=== PATIENT | male | born 1945 | race Caucasian/White ===

== ENCOUNTER → 2023-07-18 10:13 | Outpatient (REF) | payer MEDICARE, OTHER, SELFPAY ==
[2023-07-18 15:49] LABS: ALT (SGPT) 22 U/L (0-50); AST (SGOT) 36 U/L (17-59); Albumin 4.2 g/dl (3.5-5.0); Alkaline Phosphatase 78 U/L (38-126); Blood Urea Nitrogen 27 mg/dl (9-20); Calcium 10.1 mg/dl (8.4-10.2); Carbon Dioxide 24 mmol/L (22-30); Chloride 106 mmol/L (98-107); Glucose 95 mg/dl (70-99); Iron 97 ug/dl (49-181); Potassium 4.6 mmol/L (3.5-5.1); Sodium 137 mmol/L (135-145); Total Bilirubin 0.6 mg/dl (0.2-1.3); eGFR 52.09
[2023-07-18 15:56] LABS: % Basophils 0.9 % (0-2); % Eosinophils 3.6 % (0-6); % Immature Granulocytes 0.9 % (0-0.5); % Lymphocytes 29.4 % (20.5-51.1); % Monocytes 13.6 % (1.7-9.3); % Neutrophils 51.6 % (42.2-75.2); Absolute Basophils 0.1 10^3/uL (0-0.2); Absolute Eosinophils 0.2 10^3/uL (0-0.7); Absolute Immature Granulocytes 0.1 10^3/uL (0-0.05); Absolute Lymphocytes 1.6 10^3/uL (1.2-3.4); Absolute Monocytes 0.7 10^3/uL (0.1-0.6); Absolute Neutrophils 2.7 10^3/uL (1.4-6.5); Hematocrit 39.2 % (39.0-52.0); Hemoglobin 13.5 g/dL (13.0-18.0); Mean Corp Hgb Conc. 34.4 g/dL (33.0-37.0); Mean Corpuscular Hgb 30.1 pg (27.0-31.0); Mean Corpuscular Volume 87.5 fL (80.0-94.0); Mean Platelet Volume 10.5 fL (7.4-10.4); Nucleated Red Blood Cells % 0 % (-); Platelet Count 234 10^3/uL (130-400); Red Blood Cell Count 4.48 10^6/uL (4.70-6.10); Red Cell Dist. Width 12.8 % (11.5-14.5); White Blood Cell Count 5.3 10^3/uL (4.8-10.8)
[2023-07-18 15:58] LABS: Percent Saturation 23 % (20-50); Total Iron Binding Capacity 416 ug/dl (261-462)
[2023-07-18 16:24] LABS: Ferritin 9.4 ng/ml (17.9-464.0)
[2023-07-18 16:30] LABS: D-Dimer 0.45 ug/mlFEU (0.00-0.50)
== END ==
LOC: HWLAB 10:13
PROVIDERS: ATTENDING PHYSICIAN Internal Medicine Hematology & Oncology; FAMILY PHYSICIAN Internal Medicine; REFERRING PHYSICIAN Urology
DX: I80.3 Phlebitis and thrombophlebitis of lower extremities, unspecified (principal); I80.12 Phlebitis and thrombophlebitis of left femoral vein; D50.9 Iron deficiency anemia, unspecified; R97.20 Elevated prostate specific antigen [PSA]
CPT/HCPCS: 36415; 80053; 82728; 83540; 83550; 84153; 85025; 85379

== ENCOUNTER → 2023-10-01 08:29 | Outpatient (REF) | payer MEDICARE, OTHER, SELFPAY ==
[2023-10-01 09:28] LABS: % Basophils 0.8 % (0-2); % Eosinophils 3.7 % (0-6); % Immature Granulocytes 0.2 % (0-0.5); % Lymphocytes 27.5 % (20.5-51.1); % Monocytes 12.4 % (1.7-9.3); % Neutrophils 55.4 % (42.2-75.2); Absolute Eosinophils 0.2 10^3/uL (0-0.7); Absolute Lymphocytes 1.4 10^3/uL (1.2-3.4); Absolute Monocytes 0.6 10^3/uL (0.1-0.6); Absolute Neutrophils 2.9 10^3/uL (1.4-6.5); Hematocrit 42.4 % (39.0-52.0); Hemoglobin 14.8 g/dL (13.0-18.0); Mean Corp Hgb Conc. 34.9 g/dL (33.0-37.0); Mean Corpuscular Hgb 30.7 pg (27.0-31.0); Mean Platelet Volume 9.8 fL (7.4-10.4); Nucleated Red Blood Cells % 0 % (-); Platelet Count 182 10^3/uL (130-400); Red Blood Cell Count 4.82 10^6/uL (4.70-6.10); Red Cell Dist. Width 13.1 % (11.5-14.5); White Blood Cell Count 5.2 10^3/uL (4.8-10.8)
[2023-10-01 11:25] LABS: Ferritin 19.4 ng/ml (17.9-464.0)
[2023-10-01 14:04] LABS: Iron 123 ug/dl (49-181)
[2023-10-01 14:14] LABS: Percent Saturation 35 % (20-50); Total Iron Binding Capacity 342 ug/dl (261-462)
== END ==
LOC: HWLAB 08:29
PROVIDERS: ATTENDING PHYSICIAN Internal Medicine Hematology & Oncology; FAMILY PHYSICIAN Internal Medicine
DX: I80.3 Phlebitis and thrombophlebitis of lower extremities, unspecified (principal); I80.12 Phlebitis and thrombophlebitis of left femoral vein; D50.9 Iron deficiency anemia, unspecified
CPT/HCPCS: 36415; 82728; 83540; 83550; 85025

== ENCOUNTER → 2023-12-03 10:17 | Outpatient (REF) | payer MEDICARE, OTHER, SELFPAY ==
[2023-12-03 12:19] LABS: % Basophils 1.1 % (0-2); % Eosinophils 3.6 % (0-6); % Lymphocytes 31.5 % (20.5-51.1); % Monocytes 15.1 % (1.7-9.3); % Neutrophils 48.7 % (42.2-75.2); Absolute Basophils 0.1 10^3/uL (0-0.2); Absolute Eosinophils 0.2 10^3/uL (0-0.7); Absolute Lymphocytes 1.4 10^3/uL (1.2-3.4); Absolute Monocytes 0.7 10^3/uL (0.1-0.6); Absolute Neutrophils 2.2 10^3/uL (1.4-6.5); Hematocrit 43.3 % (39.0-52.0); Mean Corp Hgb Conc. 34.6 g/dL (33.0-37.0); Mean Corpuscular Hgb 32.1 pg (27.0-31.0); Mean Corpuscular Volume 92.5 fL (80.0-94.0); Mean Platelet Volume 9.7 fL (7.4-10.4); Nucleated Red Blood Cells % 0 % (-); Platelet Count 195 10^3/uL (130-400); Red Blood Cell Count 4.68 10^6/uL (4.70-6.10); Red Cell Dist. Width 12.5 % (11.5-14.5); White Blood Cell Count 4.4 10^3/uL (4.8-10.8)
[2023-12-03 13:01] LABS: ALT (SGPT) 32 U/L (0-50); AST (SGOT) 48 U/L (17-59); Albumin 4.3 g/dl (3.5-5.0); Alkaline Phosphatase 64 U/L (38-126); Blood Urea Nitrogen 26 mg/dl (9-20); Calcium 10.2 mg/dl (8.4-10.2); Carbon Dioxide 27 mmol/L (22-30); Chloride 102 mmol/L (98-107); Glucose 92 mg/dl (70-99); HDL Cholesterol 47 mg/dl; LDL Cholesterol, Calculated 105 mg/dl; Sodium 138 mmol/L (135-145); Total Bilirubin 0.8 mg/dl (0.2-1.3); Total Cholesterol 183 mg/dl (50-199); Total Protein 7.2 g/dl (6.3-8.2); Triglyceride 158 mg/dl (10-149); Very Low Density Lipoprotein 31 mg/dl (0-30); eGFR 52.09
[2023-12-03 13:13] LABS: Vitamin D, 25-OH*** 71.5 ng/mL (30-80)
[2023-12-03 13:27] LABS: PSA, Total - Diagnostic 3.42 ng/ml (0.0-4.0)
== END ==
LOC: HWLAB 10:17
PROVIDERS: ATTENDING PHYSICIAN Urology; FAMILY PHYSICIAN Internal Medicine
DX: I10 Essential (primary) hypertension (principal); E78.00 Pure hypercholesterolemia, unspecified; K21.9 Gastro-esophageal reflux disease without esophagitis; E55.9 Vitamin D deficiency, unspecified; R97.20 Elevated prostate specific antigen [PSA]
CPT/HCPCS: 36415; 80053; 80061; 82306; 84153; 85025

== ENCOUNTER → 2024-02-10 19:11 | Outpatient (REF) | payer MEDICARE, OTHER, SELFPAY | LOC: MRI 3T 19:11 | PROVIDERS: ATTENDING PHYSICIAN Urology; FAMILY PHYSICIAN Internal Medicine | DX: R97.20 Elevated prostate specific antigen [PSA] (principal) | CPT/HCPCS: 72197; A9575 ==

== ENCOUNTER → 2024-02-28 11:18 | Outpatient (REF) | payer MEDICARE, OTHER, SELFPAY | LOC: HWRAD 11:18 | PROVIDERS: ATTENDING PHYSICIAN Internal Medicine; FAMILY PHYSICIAN Internal Medicine | DX: R05.1 Acute cough (principal) | CPT/HCPCS: 71046 ==

== ENCOUNTER → 2024-03-04 15:19 | Outpatient (REF) | payer MEDICARE, OTHER, SELFPAY | LOC: REG 15:19 | PROVIDERS: ATTENDING PHYSICIAN Physician Assistant; FAMILY PHYSICIAN Internal Medicine | DX: R05.1 Acute cough (principal) | CPT/HCPCS: 87070; 87205 ==

== ENCOUNTER → 2024-08-05 12:31 | Outpatient (REF) | payer MEDICARE, OTHER, SELFPAY ==
[2024-08-05 16:27] LABS: PSA, Total - Diagnostic 2.72 ng/ml (0.0-4.0)
== END ==
LOC: HWLAB 12:31
PROVIDERS: ATTENDING PHYSICIAN Urology; FAMILY PHYSICIAN Internal Medicine
DX: R97.20 Elevated prostate specific antigen [PSA] (principal)
CPT/HCPCS: 36415; 84153

== ENCOUNTER → 2025-01-12 09:07 | Outpatient (REF) | payer MEDICARE, OTHER, SELFPAY ==
[2025-01-12 12:09] LABS: Hematocrit 39.8 % (39.0-52.0); Hemoglobin 12.7 g/dL (13.0-18.0); Mean Corp Hgb Conc. 31.9 g/dL (33.0-37.0); Mean Corpuscular Volume 90.5 fL (80.0-94.0); Nucleated Red Blood Cells % 0 % (-); Platelet Count 185 10^3/uL (130-400); Red Cell Dist. Width 14.1 % (11.5-14.5)
[2025-01-12 12:29] LABS: ALT (SGPT) 27 U/L (0-50); AST (SGOT) 35 U/L (17-59); Albumin 4.1 g/dl (3.5-5.0); Alkaline Phosphatase 67 U/L (38-126); Blood Urea Nitrogen 19 mg/dl (9-20); Calcium 9.8 mg/dl (8.4-10.2); Carbon Dioxide 29 mmol/L (22-30); Chloride 103 mmol/L (98-107); Glucose 99 mg/dl (70-99); HDL Cholesterol 44 mg/dl; LDL Cholesterol, Calculated 97 mg/dl; Potassium 4.6 mmol/L (3.5-5.1); Sodium 138 mmol/L (135-145); Total Protein 7.1 g/dl (6.3-8.2); Very Low Density Lipoprotein 25 mg/dl (0-30); eGFR 56.58
[2025-01-12 12:33] LABS: Vitamin D, 25-OH*** 88.1 ng/mL (30-80)
[2025-01-12 12:47] LABS: PSA, Total - Diagnostic 4.53 ng/ml (0.0-4.0)
== END ==
LOC: HWLAB 09:07
PROVIDERS: ATTENDING PHYSICIAN Urology; FAMILY PHYSICIAN Internal Medicine
DX: E78.00 Pure hypercholesterolemia, unspecified (principal); I10 Essential (primary) hypertension; E55.9 Vitamin D deficiency, unspecified; R97.20 Elevated prostate specific antigen [PSA]
CPT/HCPCS: 36415; 80053; 80061; 82306; 84153; 85025